=== PATIENT | female | born 1955 | race American Indian/Alaskan Native ===

== ENCOUNTER 2022-01-27 15:04 | Inpatient (IN) | payer MEDICARE ==
[2022-01-27] MEDS ORDERED: MIDAZOLAM 2 MG/2 ML INJ ONE (16:11)
[2022-01-27] MEDS ORDERED: levETIRAcetam 1000 MG/NS 0.75% 1,000 MG/100 ML BAG IV ONE ×2 (16:13→16:15)
[2022-01-27] MEDS ORDERED: MIDAZOLAM 2 MG/2 ML INJ IV STA (16:14)
--- NOTE | 2022-01-27 16:30 | Emergency Department Report ---
ED General Adult HPI - General Chief complaint: Seizure Stated complaint: SEIZURE Time Seen by Provider: 01/27/22 16:07 Source: patient, EMS (Verbal report received from emergency medical services. EMS documentation not available at time of chart dictation ), RN notes reviewed, old records reviewed Mode of arrival: Stretcher Limitations: Physical Limitation - History of Present Illness Initial comments: The patient was evaluated in the emergency department for symptoms described in the history of present illness. He/she was evaluated in the context of the global COVID-19 pandemic, which necessitated consideration that the patient might be at risk for infection with the virus that causes COVID-19. Institutional protocols and algorithms that pertain to the evaluation of patients at risk for COVID-19 are in a state of rapid change based on inf ormation released by regulatory bodies including the CDC and federal and state organizations. These policies and algorithms were followed during the patient's care in the emergency department. Please note that these policies, procedures and recommendations changed on a rapid basis. Primary care doctor: Dr. Maldonado Past medical history stroke, with residual left-sided hemiparesis, hypothyroidism, hypertension, renal insufficiency, congestive heart failure. Current home medications include aspirin, isosorbide dinitrate hydralazine, carvedilol, folic acid, lidocaine, losartan, MiraLAX, multivitamin, Robitussin, rosuvastatin, sennosides, Synthroid, tramadol, Tylenol, Zoloft, vitamin D3 This patient is a pleasant and cooperative 66-year-old female, who presents to the ER today, with an EMS articulated complaint of possible seizure. Patient does not recall having had a seizure. Patient apparently does not have a known history of seizure. EMS reports that they do not know how long the convulsive event or seizure lasted for. The patient is not accompanied by friends, family or personal from group home for collateral information. However, at this point time, the patient denies all acute complaints and indicates that she feels like she is at her baseline. As per verbal report from EMS, normal Accu-Chek in the field, and unremarkable vital signs. Patient herself denies all complaints at this time. She states that she feels fine. While in the emergency room, the patient had a generalized tonic-clonic seizure, which was terminated with 2 mg of Versed. She is now currently postictal, and breathing spontaneously. -: Sudden Severity scale (0 -10): 0 Consistency: now resolved Improves with: medication Worsens with: none - Related Data Allergies Allergy/AdvReac Type Severity Reaction Status Date / Time amoxicillin [From Augmentin] Allergy Unknown Verified 01/27/22 15:47 azithromycin Allergy Unknown Verified 01/27/22 15:47 clavulanic acid Allergy Unknown Verified 01/27/22 15:47 [From Augmentin] latex Allergy Unknown Verified 01/27/22 15:47 Penicillins Allergy Unknown Verified 01/27/22 15:47 shellfish derived Allergy Unknown Verified 01/27/22 15:47 ED Review of Systems ROS: Stated complaint: SEIZURE Other details as noted in HPI Constitutional: denies: fever Eyes: denies: eye discharge Respiratory: denies: cough Cardiovascular: denies: chest pain Gastrointestinal: denies: abdominal pain Genitourinary: denies: dysuria Musculoskeletal: denies: back pain Neurological: weakness (Chronic left-sided hemiparesis) ED Past Medical Hx - Past Medical History Hx Hypertension: Yes Hx CVA: Yes (L sided weakness) Hx Congestive Heart Failure: Yes Hx Renal Disease: Yes (CKD stage 3) Hx Psychiatric Treatment: Yes (depression) ED Physical Exam - General Limitations: Physical Limitation General appearance: alert, in no apparent distress - Head Head exam: Present: atraumatic, normocephalic - Eye Eye exam: Present: normal appearance, EOMI. Absent: conjunctival injection, nystagmus - ENT ENT exam: Present: normal exam, normal orophraynx, mucous membranes moist, normal external ear exam - Neck Neck exam: Present: normal inspection, full ROM. Absent: tenderness, meningismus - Respiratory Respiratory exam: Present: decreased breath sounds. Absent: respiratory distress, wheezes, rales, rhonchi, stridor - Cardiovascular Cardiovascular Exam: Present: regular rate, normal rhythm, normal heart sounds. Absent: bradycardia, tachycardia, irregular rhythm, systolic murmur, diastolic murmur, rubs, gallop - GI/Abdominal GI/Abdominal exam: Present: soft, normal bowel sounds, hernia (Reducible nontender umbilical hernia). Absent: distended, tenderness, guarding, rebound, rigid - Extremities Exam Extremities exam: Present: normal inspection, full ROM (Right arm and right leg), pedal edema (2+ edema in the bilateral lower extremities), other (2+ pulses noted in the bilateral upper and lower extremities. There is no palpable cord. negative Homans sign. Muscular compartments are soft. The pelvis is stable.). Absent: calf tenderness - Back Exam Back exam: Present: normal inspection. Absent: tenderness, CVA tenderness (R), CVA tenderness (L), paraspinal tenderness, vertebral tenderness - Neurological Exam Neurological exam: Present: alert, motor sensory deficit (There is left-sided hemiparesis), other (There is no facial droop. The tongue is midline. EOMI. 5 out of 5 strength right arm and right leg) - Psychiatric Psychiatric exam: Present: normal affect, normal mood - Skin Skin exam: Present: warm, dry, intact, normal color. Absent: rash ED Course Vital Signs 01/27/22 01/27/22 01/27/22 15:36 16:17 16:31 Temperature 99.3 F Pulse Rate 99 H 99 H 107 H Respiratory 18 29 H 40 H Rate Blood Pressure 211/118 Blood Pressure 182/86 [Left] O2 Sat by Pulse 99 98 96 Oximetry 01/27/22 01/27/22 01/27/22 16:47 17:01 17:15 Temperature Pulse Rate 99 H 97 H 93 H Respiratory 13 31 H 25 H Rate Blood Pressure 211/118 194/96 182/89 Blood Pressure [Left] O2 Sat by Pulse 94 93 93 Oximetry 01/27/22 01/27/22 01/27/22 17:31 17:37 17:45 Temperature Pulse Rate 88 94 H 89 Respiratory 22 26 H Rate Blood Pressure 170/75 194/96 159/84 Blood Pressure [Left] O2 Sat by Pulse 97 97 Oximetry 01/27/22 01/27/22 18:01 18:15 Temperature Pulse Rate 87 94 H Respiratory 24 17 Rate Blood Pressure 172/81 161/74 Blood Pressure [Left] O2 Sat by Pulse 97 96 Oximetry - Reevaluation(s) Reevaluation #1: 01/27/22 16:40 Differential diagnosis, include but not limited to: Seizure, pneumonia, UTI, electrolyte derangement, intracranial mass lesion, hemorrhage Assessment and plan: 66-year-old female, who initially is awake, alert, oriented, sober, pleasant and cooperative, with report of seizure, and known left-sided hemiparesis. Patient had a generalized tonic-clonic seizure while interviewing her, which terminated with 2 mg of midazolam. Obtain stat CT scan of the brain, appropriate laboratory studies, loaded with 2 g of Keppra, and obtain urinalysis. Aspiration precautions, head of bed elevation, n.p.o. status at this time. Reassess after initial data points. Patient had return of normal mental status in the field and upon my initial evaluation, therefore, at this point time, is not in the status epilepticus algorithm 01/27/22 17:14 Patient awake and in no acute distress. Following commands and moving right arm and right leg without difficulty 01/27/22 17:48 Blood pressure improved, systolic 170 mmHg. Laboratory studies reviewed and appreciated. Leukocytosis is likely a stress reaction. Keppra infusing. Awaiting urinalysis. 01/27/22 18:12 Urinalysis pending. X-ray of the chest suggest pneumonia. "Penicillin" allergy reviewed and appreciated. As a third-generation cephalosporin, ceftriaxone is not structurally similar to penicillin, and is statistically unlikely to cause an allergic reaction. Blood cultures and lactic acid will be obtained. Patient to be medicated with ceftriaxone and doxycycline. Patient will be admitted to the medical service for new onset convulsion/seizure, and right lower lobe pneumonia. While urinalysis is pending at this time, ceftriaxone should cover most urinary pathogens. 01/27/22 18:25 Dr. Joshi to admit patient to the medical service ED Medical Decision Making - Lab Data Result diagrams: 01/27/22 16:51 01/27/22 16:51 Vital Signs 01/27/22 15:36 Temperature 99.3 F Pulse Rate 99 H Respiratory 18 Rate Blood Pressure 182/86 [Left] O2 Sat by Pulse 99 Oximetry - EKG Data -: EKG Interpreted by Ri EKG shows normal: sinus rhythm Rate: tachycardia - EKG Data 01/27/22 16:40 There is no prior EKG available for comparison. Sinus tachycardia, with a rate of 112 bpm. Normal axis, normal P wave axis, QTC 511 ms, left ventricular hypertrophy. Abnormal EKG. Not a STEMI. - Radiology Data Radiology results: pending, report reviewed, image reviewed CT head/brain wo con INDICATION / CLINICAL INFORMATION: 66 years Female; Seiz ure. TECHNIQUE: Routine CT head without contrast. All CT scans at this location are performed using CT dose reduction for ALARA by means of automated exposure control. COMPARISON: None. FINDINGS: BRAIN / INTRACRANIAL CONTENTS: There is extensive encephalomalacia involving right cerebral hemisphere most consistent with large old right MCA infarct. There is mild left to cerebral white matter disease most consistent with microvascular angiopathy. There is associated ex vacuo dilatation of the right lateral ventricle. Ventricular system is otherwise unremarkable. There is no clear CT evidence of acute intracranial hemorrhage. Is wallerian degeneration involving the right cerebral pinnacle. ORBITS: No significant abnormality of visualized orbits. SINUSES / MASTOIDS: No significant abnormality in the visualized paranasal sinuses or mastoid air cells. CRANIOCERVICAL JUNCTION: No significant abnormality. ADDITIONAL FINDINGS: None. IMPRESSION: 1. There is an old large right MCA infarct with extensive encephalomalacia. 2. There is no CT evidence of acute intracranial hemorrhage. Signer Name: Curtis Jimenez MD Signed: 01/27/2022 3:54 PM CHEST 1 VIEW 01/27/2022 4:40 PM INDICATION / CLINICAL INFORMATION: Seizure and hypertension. COMPARISON: None available. FINDINGS: SUPPORT DEVICES: None. HEART / MEDIASTINUM: No significant abnormality. LUNGS / PLEURA: Hazy opacities in the right lung base. No pneumothorax. ADDITIONAL FINDINGS: Chronic appearing fracture of the left humeral neck. IMPRESSION: 1. Hazy opacities in the medial right lung base are concerning for pneumonia. Signer Name: Stefano Medrano MD Signed: 01/27/2022 4:59 PM Workstation Name: [id number] Critical Care Time: Yes Critical care time in (mins) excluding proc time.: 35 Critical care attestation.: If time is entered above; I have spent that time in minutes in the direct care of this critically ill patient, excluding procedure time. ED Disposition Clinical Impression: Seizure, Left hemiparesis, Encephalomalacia on imaging study, Elevated blood pressure reading, Pulmonary infiltrate Disposition: ADMITTED INPATIENT Is pt being admited?: Yes Does the pt Need Aspirin: No Condition: Good Referrals: ANDRES LUEVANO [Primary Care Provider] - 3-5 Days
--- NOTE | 2022-01-27 16:58 | Cat Scan Report ---
CT head/brain wo con INDICATION / CLINICAL INFORMATION: 66 years Female; Seizure. TECHNIQUE: Routine CT head without contrast. All CT scans at this location are performed using CT dos e reduction for ALARA by means of automated exposure control. COMPARISON: None. FINDINGS: BRAIN / INTRACRANIAL CONTENTS: There is extensive encephalomalacia involving right cerebral hemispher e most consistent with large old right MCA infarct. There is mild left to cerebral white matter disea se most consistent with microvascular angiopathy. There is associated ex vacuo dilatation of the righ t lateral ventricle. Ventricular system is otherwise unremarkable. There is no clear CT evidence of a cute intracranial hemorrhage. Is wallerian degeneration involving the right cerebral pinnacle. ORBITS: No significant abnormality of visualized orbits. SINUSES / MASTOIDS: No significant abnormality in the visualized paranasal sinuses or mastoid air sarah ls. CRANIOCERVICAL JUNCTION: No significant abnormality. ADDITIONAL FINDINGS: None. IMPRESSION: 1. There is an old large right MCA infarct with extensive encephalomalacia. 2. There is no CT evidence of acute intracranial hemorrhage. Signer Name: Curtis Jimenez MD Signed: 01/27/2022 4:54 PM Workstation Name: [id number]
[2022-01-27] MEDS ORDERED: hydrALAZINE 20 MG/1 ML INJ IV ONE (17:07)
[2022-01-27 17:34] LABS: Basophils % (Auto) 0.2 % (0.0-1.8); Hematocrit 37.5 % (30.3-42.9); Hemoglobin 11.9 gm/dl (10.1-14.3); Lymphocytes # (Auto) 1.8 K/mm3 (1.2-5.4); Lymphocytes % (Auto) 10.2 % (13.4-35.0); Mean Corpuscular HGB Conc 32 % (30-34); Mean Corpuscular Volume 81 fl (79-97); Monocytes # (Auto) 0.9 K/mm3 (0.0-0.8); Monocytes % (Auto) 5.2 % (0.0-7.3); Platelet Count 311 K/mm3 (140-440); Red Blood Count 4.62 M/mm3 (3.65-5.03); Red Cell Distribution Width 16.7 % (13.2-15.2)
[2022-01-27 17:37] LABS: Albumin 4.3 g/dL (3.9-5); Calcium 10.4 mg/dL (8.4-10.2)
[2022-01-27 17:53] LABS: INR 1.19 (0.87-1.13)
[2022-01-27 17:54] LABS: Partial Thromboplastin Time 29.2 Sec. (24.2-36.6)
--- NOTE | 2022-01-27 18:03 | XRay Report ---
CHEST 1 VIEW 01/27/2022 4:40 PM INDICATION / CLINICAL INFORMATION: Seizure and hypertension. COMPARISON: None available. FINDINGS: SUPPORT DEVICES: None. HEART / MEDIASTINUM: No significant abnormality. LUNGS / PLEURA: Hazy opacities in the right lung base. No pneumothorax. ADDITIONAL FINDINGS: Chronic appearing fracture of the left humeral neck. IMPRESSION: 1. Hazy opacities in the medial right lung base are concerning for pneumonia. Signer Name: Stefano Medrano MD Signed: 01/27/2022 5:59 PM Workstation Name: [id number]
[2022-01-27] MEDS ORDERED: cefTRIAXone/NS 1 GM/50 ML 1 GM/50 ML BAG IV ONE (18:11)
--- NOTE | 2022-01-27 18:26 | History and Physical Report ---
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 Patient has diminished cognition and provides minimal history. Patient reports "I feel right now". Additional history provided by EMS staff, ED staff, as well as [facility] staff. As per staff the patient was found to have a fever to 101.3 F and was found to have a witnessed seizure. EMS was notified and upon arrival the patient was found to be in distress and subsequent transported to [facility] for fur ther care and evaluation of the aforementioned symptoms. The patient was seen and evaluated in the emergency department. All lab and imaging studies reviewed. Chest x-ray revealed pneumonia, urinalysis also revealed urinary tract infection complicated by sepsis, metabolic acidosis, accelerated hy pertension and new onset seizure. Patient admitted to medical floor due to increased risk of worsening symptoms and initiated on pneumonia protocol. No reports of chills, chest pain, palpitation, adductive cough, skin rash, recent contact, or known exposure to COVID-19. No prior admission for review. All medication listed at time of admission has been reconciled. Advanced care planning conducted in ED. Past History Past Medical History: heart failure, hypertension, hypothyroidism, stroke, other (See HPI) Past Surgical History: No surgical history, Other (Reviewed) Social history: . denies: smoking, alcohol abuse, prescription drug abuse Family history: diabetes, hypertension Medications and Allergies Allergies Allergy/AdvReac Type Severity Reaction Status Date / Time amoxicillin [From Augmentin] Allergy Unknown Verified 01/27/22 15:47 azithromycin Allergy Unknown Verified 01/27/22 15:47 clavulanic acid Allergy Unknown Verified 01/27/22 15:47 [From Augmentin] latex Allergy Unknown Verified 01/27/22 15:47 Penicillins Allergy Unknown Verified 01/27/22 15:47 shellfish derived Allergy Unknown Verified 01/27/22 15:47 Active Meds: Active Medications Doxycycline Hyclate 100 mg/ (Sodium Chloride) 250 mls @ 250 mls/hr IV ONCE ONE; Protocol Stop: 01/27/22 20:29 Ceftriaxone Sodium (Rocephin/Ns 1 Gm/50 Ml) 1 gm in 50 mls @ 100 mls/hr IV ONCE ONE; Protocol Stop: 01/27/22 18:40 Review of Systems ROS unobtainable: due to mental status Exam - Constitutional Vitals: Temp Pulse Resp BP Pulse Ox 99.3 F 94 H 17 161/74 96 01/27/22 15:36 01/27/22 18:15 01/27/22 18:15 01/27/22 18:15 01/27/22 18:15 General appearance: Present: mild distress - EENT Eyes: Present: PERRL ENT: clear oral mucosa, hearing decreased - Neck Neck: Present: supple, normal ROM - Respiratory Respiratory effort: normal Respiratory: bilateral: diminished, rhonchi - Cardiovascular Heart Sounds: Present: S1 & S2. Absent: rub, click - Extremities Extremities: pulses symmetrical, No edema Peripheral Pulses: within normal limits - Abdominal General gastrointestinal: Present: soft, non-tender, non-distended, normal bowel sounds Female genitourinary: Present: normal - Integumentary Integumentary: Present: clear, warm, dry - Musculoskeletal Musculoskeletal: generalized weakness - Psychiatric Psychiatric: no memory intact, cooperative - Neurologic Neurologic: CNII-XII intact, moves all extremities Results - Labs CBC & Chem 7: 01/27/22 16:51 01/27/22 16:51 Labs: Abnormal lab results 01/27/22 01/27/22 01/27/22 Range/Units 16:51 16:51 16:51 WBC 17.5 H (4.5-11.0) K/mm3 MCH 26 L (28-32) pg RDW 16.7 H (13.2-15.2) % Lymph % (Auto) 10.2 L (13.4-35.0) % Orange # (Auto) 0.9 H (0.0-0.8) K/mm3 Seg Neutrophils % 84.4 H (40.0-70.0) % Seg Neutrophils # 14.7 H (1.8-7.7) K/mm3 PT (12.2-14.9) Sec. INR (0.87-1.13) Carbon Dioxide 20 L (22-30) mmol/L Glucose 134 H (65-100) mg/dL Calcium 10.4 H (8.4-10.2) mg/dL Total Creatine Kinase 380 H (30-135) units/L Salicylates < 0.3 L (2.8-20.0) mg/dL Acetaminophen (10.0-30.0) ug/mL 01/27/22 01/27/22 Range/Units 16:51 16:51 WBC (4.5-11.0) K/mm3 MCH (28-32) pg RDW (13.2-15.2) % Lymph % (Auto) (13.4-35.0) % Orange # (Auto) (0.0-0.8) K/mm3 Seg Neutrophils % (40.0-70.0) % Seg Neutrophils # (1.8-7.7) K/mm3 PT 16.5 H (12.2-14.9) Sec. INR 1.19 H (0.87-1.13) Carbon Dioxide (22-30) mmol/L Glucose (65-100) mg/dL Calcium (8.4-10.2) mg/dL Total Creatine Kinase (30-135) units/L Salicylates (2.8-20.0) mg/dL Acetaminophen 5.0 L (10.0-30.0) ug/mL Assessment and Plan - Patient Problems (1) Pneumonia Current Visit: Yes Status: Acute Plan to address problem: Morning protocol: Chest x-ray, CBC, IV antibiotic therapy, supplemental oxygen, pulse oximetry, continue medical management. (2) Seizure Current Visit: Yes Status: Acute Plan to address problem: Seizure precautions. Patient loaded with Keppra in the emergency department. Neuro check, seizure precaution. Suspect seizure may be due to to sepsis. (3) Sepsis Current Visit: Yes Status: Acute Plan to address problem: Sepsis protocol: Chest x-ray, CBC, urinalysis, IV antibiotic therapy, IV fluid resuscitation therapy, maintain mean arterial pressure greater than equal to 65, serial lactic acid level. (4) Metabolic acidosis Current Visit: Yes Status: Acute Plan to address problem: IV fluid resuscitation therapy, BMP, serial lactic acid level. (5) Accelerated hypertension Current Visit: Yes Status: Acute Plan to address problem: Monitor blood pressure every shift, continue medical management. (6) Vascular dementia Current Visit: Yes Status: Acute Qualifiers: Dementia behavioral disturbance: without behavioral disturbance Qualified Code(s): F01.50 - Vascular dementia without behavioral disturbance Plan to address problem: Verbal prompting, verbal redirection, benzodiazepine therapy as clinically indicated. (7) Cerebral atherosclerosis Current Visit: Yes Status: Acute Plan to address problem: Risk factor reduction, antiplatelet therapy as clinically indicated, supportive care. (8) DVT prophylaxis Current Visit: Yes Status: Acute Plan to address problem: SCD to bilateral lower extremities while in bed (9) Advance care planning Current Visit: Yes Status: Acute Plan to address problem: Disease education conducted, care plan discussed, diagnoses discussed, prognosis discussed, patient is full code, +30 minutes. (10) Preventative health care Current Visit: Yes Status: Acute Plan to address problem: Risk factor reduction discussed. Patient to follow-up with primary care physician for all age and risk factor appropriate screening test. +30 minutes.
[2022-01-27] MEDS ORDERED: oxyCODONE /ACETAMINOPHEN 5-325MG TAB PO PRN (18:28)
[2022-01-27] MEDS ORDERED: ONDANSETRON 4 MG/2 ML INJ IV PRN (18:28)
[2022-01-27] MEDS ORDERED: ACETAMINOPHEN 325 MG TAB PO PRN (18:28)
[2022-01-27] MEDS ORDERED: HYDROmorphone 0.5 MG/0.5 ML INJ IV PRN (18:28)
[2022-01-27] MEDS ORDERED: ALBUTEROL 2.5 MG/3 ML NEBU IH PRN (18:28)
[2022-01-27] MEDS ORDERED: SODIUM CHLORIDE 0.9% 1000 ML 1,000 ML IV SCH (18:45)
[2022-01-27 19:28] LABS: Color,Urine Yellow (Yellow)
[2022-01-27] MEDS ORDERED: DOXYCYCLINE HYCLATE 100 MG in SODIUM CHLORIDE 0.9% 250ML 250 ML IV ONE (19:30)
[2022-01-27 19:34] LABS: Bacteria,Urine 4+ /HPF (Negative); Mucus,Urine FEW /HPF
[2022-01-27] MEDS: levoFLOXacin 750 MG TAB PO SCH (20:33)
--- NOTE | 2022-01-28 08:17 | Progress Note ---
Assessment and Plan Assessment and plan: #Sepsis #Pneumonia #Asymptomatic bacteriuria -Chest x-ray with R lobe infiltrate -continue levaquin -UA shows bacteruria. Patient denies urinary complaints, no need to treat #Seizure vs myoclonic syncope -patient loaded with Keppra in the ED -EEG and Neurology consult ordered -will contine neurochecks -may be due to infection #Metabolic acidosis-resolved -IV fluid resuscitation therapy #Hypertension -continue coreg at home dose #Vascular dementia #Cerebral atherosclerosis -continue ASA + statin #Advanced care planning -Disease education conducted, care plan discussed, diagnoses discussed, prognosis discussed, patient is full code, +30 minutes. History Interval history: No acute events overnight. Patient is alert and oriented x4. She denies history of seizure. She last recalls being at the [facility] with no symptoms prior to the event. She currently has no issues at this time. Hospitalist Physical - Physical exam Narrative exam: GENERAL: Well-developed well-nourished. In no acute distress. HEENT: Normocephalic. Atraumatic. NECK: Supple. CHEST/LUNGS: CTAB on room air HEART/CARDIOVASCULAR: RRR. No murmur, rubs or gallops appreciated. ABDOMEN: +BS. NT/ND. SKIN: No rashes noted. NEURO: No focal motor deficit. Follows all commands. MUSCULOSKELETAL: No joint effusion EXTREMITIES: No cyanosis, clubbing or edema. PSYCH: Cooperative. - Constitutional Vitals: Temp Pulse Resp BP Pulse Ox 99.2 F 81 18 152/69 98 01/27/22 22:48 01/27/22 22:48 01/28/22 00:12 01/27/22 22:48 01/28/22 08:07 General appearance: Present: mild distress Results - Labs CBC & Chem 7: 01/28/22 07:35 01/28/22 07:35 Labs: Laboratory Last Values WBC 17.5 K/mm3 (4.5-11.0) H 01/27/22 16:51 RBC 4.62 M/mm3 (3.65-5.03) 01/27/22 16:51 Hgb 11.9 gm/dl (10.1-14.3) 01/27/22 16:51 Hct 37.5 % (30.3-42.9) 01/27/22 16:51 MCV 81 fl (79-97) 01/27/22 16:51 MCH 26 pg (28-32) L 01/27/22 16:51 MCHC 32 % (30-34) 01/27/22 16:51 RDW 16.7 % (13.2-15.2) H 01/27/22 16:51 Plt Count 311 K/mm3 (140-440) 01/27/22 16:51 Lymph % (Auto) 10.2 % (13.4-35.0) L 01/27/22 16:51 Clinch % (Auto) 5.2 % (0.0-7.3) 01/27/22 16:51 Eos % (Auto) 0.0 % (0.0-4.3) 01/27/22 16:51 Baso % (Auto) 0.2 % (0.0-1.8) 01/27/22 16:51 Lymph # (Auto) 1.8 K/mm3 (1.2-5.4) 01/27/22 16:51 Clinch # (Auto) 0.9 K/mm3 (0.0-0.8) H 01/27/22 16:51 Eos # (Auto) 0.0 K/mm3 (0.0-0.4) 01/27/22 16:51 Baso # (Auto) 0.0 K/mm3 (0.0-0.1) 01/27/22 16:51 Seg Neutrophils % 84.4 % (40.0-70.0) H 01/27/22 16:51 Seg Neutrophils # 14.7 K/mm3 (1.8-7.7) H 01/27/22 16:51 PT 16.5 Sec. (12.2-14.9) H 01/27/22 16:51 INR 1.19 (0.87-1.13) H 01/27/22 16:51 APTT 29.2 Sec. (24.2-36.6) 01/27/22 16:51 Sodium 138 mmol/L (137-145) 01/27/22 16:51 Potassium 3.8 mmol/L (3.6-5.0) 01/27/22 16:51 Chloride 100.7 mmol/L (98-107) 01/27/22 16:51 Carbon Dioxide 20 mmol/L (22-30) L 01/27/22 16:51 Anion Gap 21 mmol/L 01/27/22 16:51 BUN 16 mg/dL (7-17) 01/27/22 16:51 Creatinine 1.2 mg/dL (0.6-1.2) 01/27/22 16:51 Estimated GFR 55 ml/min 01/27/22 16:51 BUN/Creatinine Ratio 13 % 01/27/22 16:51 Glucose 134 mg/dL (65-100) H 01/27/22 16:51 Lactic Acid 1.90 mmol/L (0.7-2.0) 01/27/22 18:52 Calcium 10.4 mg/dL (8.4-10.2) H 01/27/22 16:51 Magnesium 1.70 mg/dL (1.7-2.3) 01/27/22 16:51 Total Bilirubin 0.50 mg/dL (0.1-1.2) 01/27/22 16:51 AST 35 units/L (5-40) 01/27/22 16:51 ALT 38 units/L (7-56) 01/27/22 16:51 Alkaline Phosphatase 95 units/L (35-129) 01/27/22 16:51 Total Creatine Kinase 380 units/L (30-135) H 01/27/22 16:51 Total Protein 7.4 g/dL (6.3-8.2) 01/27/22 16:51 Albumin 4.3 g/dL (3.9-5) 01/27/22 16:51 Albumin/Globulin Ratio 1.4 % 01/27/22 16:51 TSH 3.520 mlU/mL (0.270-4.200) 01/27/22 16:51 Free T4 1.08 ng/dL (0.76-1.46) 01/27/22 16:51 Urine Color Yellow (Yellow) 01/27/22 Unknown Urine Turbidity Slightly-cloudy (Clear) 01/27/22 Unknown Specific [place] (Man) 1.015 (1.003-1.030) 01/27/22 Unknown Ur Protein (Man) 1+ mg/dL (Negative) 01/27/22 Unknown Ur Ketones (Man) Negative (Negative) 01/27/22 Unknown Ur Nitrite (Man) Positive (Negative) 01/27/22 Unknown Urine Bilirubin (Man) Negative (Negative) 01/27/22 Unknown Urine Ictotest Not Reportable 01/27/22 Unknown Leukocyte Esterase (Man) Large (Negative) 01/27/22 Unknown Urine WBC (Auto) 143.0 /HPF (0.0-6.0) H 01/27/22 Unknown Urine RBC (Auto) 13.0 /HPF (0.0-6.0) 01/27/22 Unknown U Epithel Cells (Auto) 1.0 /HPF (0-13.0) 01/27/22 Unknown Urine Bacteria (Auto) 4+ /HPF (Negative) 01/27/22 Unknown Urine RBC (Manual) 1+ (Negative) 01/27/22 Unknown Urine Mucus Few /HPF 01/27/22 Unknown Salicylates < 0.3 mg/dL (2.8-20.0) L 01/27/22 16:51 Acetaminophen 5.0 ug/mL (10.0-30.0) L 01/27/22 16:51 Plasma/Serum Alcohol < 0.01 % (0-0.07) 01/27/22 16:51 Microbiology: Microbiology 01/27/22 18:52 Peripheral/Venous Blood Culture - Preliminary Culture in Progress 01/27/22 18:52 Peripheral/Venous Blood Culture - Preliminary Culture in Progress Valentine/IV: Voiding Method External Female Catheter Active Medications - Current Medications Current Medications: Generic Name Dose Route Start Last Admin Trade Name Freq PRN Reason Stop Dose Admin Acetaminophen 650 mg 01/27/22 18:28 Acetaminophen 325 Mg Tab PO Q4H PRN Pain MILD(1-3)/Fever >100.5/ZAMORA Albuterol 2.5 mg 01/27/22 18:28 Albuterol 2.5 Mg/3 Ml Nebu IH Q4HRT PRN Shortness Of Breath Hydromorphone HCl 0.5 mg 01/27/22 18:28 Hydromorphone 0.5 Mg/0.5 Ml Inj IV Q13H PRN Pain , Severe (7-10) Sodium Chloride 1,000 mls @ 42 mls/hr 01/27/22 18:45 Nacl 0.9% 1000 Ml IV DIRECT JOSE D Levofloxacin 750 mg 01/27/22 20:00 01/27/22 20:33 Levofloxacin 750 Mg Tab PO 750 mg Q24H JOSE D Administration Protocol Ondansetron HCl 4 mg 01/27/22 18:28 Ondansetron 4 Mg/2 Ml Inj IV Q8H PRN Nausea And Vomiting Oxycodone/Acetaminophen 1 tab 01/27/22 18:28 Oxycodone /Acetaminophen 5-325mg Tab PO Q6H PRN Pain, Moderate (4-6) Sodium Chloride 10 ml 01/27/22 22:00 01/27/22 22:11 Sodium Chloride 0.9% 10 Ml Flush Syringe IV 10 ml BID JOSE D Administration Sodium Chloride 10 ml 01/27/22 18:28 Sodium Chloride 0.9% 10 Ml Flush Syringe IV PRN PRN LINE FLUSH
[2022-01-28 09:19] LABS: Hemoglobin 10.7 gm/dl (10.1-14.3); Mean Corpuscular HGB Conc 31 % (30-34); Mean Corpuscular Volume 81 fl (79-97); Platelet Count 266 K/mm3 (140-440); Red Blood Count 4.19 M/mm3 (3.65-5.03); Red Cell Distribution Width 16.5 % (13.2-15.2)
[2022-01-28] MEDS: ASPIRIN 81 MG TAB CHEW PO SCH (09:37)
[2022-01-28] MEDS: carvediloL 12.5 MG TAB PO SCH ×2 (09:37→21:31)
[2022-01-28 09:39] LABS: BUN/Creatinine Ratio 13; Blood Urea Nitrogen 14 mg/dL (7-17); Calcium 9.3 mg/dL (8.4-10.2); Hemolysis Index 5
[2022-01-28 11:32] LABS: Basophils % (Manual) 0 % (0.0-1.8); Hypochromasia 1+; Myelocytes # (Manual) 0.4 K/mm3; Platelet Estimate Consistent w Auto; Total Cells Counted 100
--- NOTE | 2022-01-28 16:58 | Electrocardiograph Report ---
[facility] Test Date: 2022-01-27 Test Time: 16:20:13 Pat Name: KENYA BARRIOS Department: Room: A373 1 Gender: F Machine [employer]il [employer]er: GUANACO : 1955 Requested By: KIRK GUTIERREZ Order Number: [id number] Reading MD: Stacey Chowdary Measurements Intervals [place] Rate: 112 P: 75 OK: 161 QRS: -1 QRSD: 105 T: 31 QT: 373 QTc: 511 Interpretive Statements Sinus tachycardia Probable left atrial enlargement Left ventricular hypertrophy Nonspecific ST segment changes No previous ECG available for comparison Electronically Signed On 01-28-2022 16:57:39 EDT by Stacey Chowdary
[2022-01-28] MEDS: levoFLOXacin 750 MG TAB PO SCH (21:31)
[2022-01-28] MEDS: SERTRALINE 100 MG TAB PO SCH (21:31)
[2022-01-29 08:41] LABS: Basophils % (Auto) 0.3 % (0.0-1.8); Eosinophils # (Auto) 0.2 K/mm3 (0.0-0.4); Eosinophils % (Auto) 2.2 % (0.0-4.3); Hematocrit 33.1 % (30.3-42.9); Hemoglobin 10.5 gm/dl (10.1-14.3); Mean Corpuscular HGB Conc 32 % (30-34); Mean Corpuscular Volume 81 fl (79-97); Monocytes # (Auto) 0.7 K/mm3 (0.0-0.8); Monocytes % (Auto) 7.9 % (0.0-7.3); Platelet Count 256 K/mm3 (140-440); Red Blood Count 4.07 M/mm3 (3.65-5.03); Red Cell Distribution Width 16.4 % (13.2-15.2)
[2022-01-29] MEDS: carvediloL 12.5 MG TAB PO SCH ×2 (08:59→21:43)
[2022-01-29] MEDS: ASPIRIN 81 MG TAB CHEW PO SCH (08:59)
[2022-01-29 09:05] LABS: BUN/Creatinine Ratio 17; Blood Urea Nitrogen 17 mg/dL (7-17); Calcium 9.3 mg/dL (8.4-10.2); Hemolysis Index 3
--- NOTE | 2022-01-29 14:49 | Progress Note ---
Assessment and Plan Assessment and plan: #Sepsisresolved #Community-acquired pneumonia secondary to possible gram-negative rods/atypical infection #Asymptomatic bacteriuria -Chest x-ray with R lobe infiltrate -continue levaquin 750 mg daily x5 days (completes on 01/31/2022) -Urinalysis revealing positive nitrites, large leukocyte esterase, WBC 143, 4+ bacteria. Unremarkable urinalysis is also being treated with Levaquin. #Seizure vs myoclonic syncope -patient loaded with Keppra in the ED -Neurology consulted; pending recs. EEG ordered. -will continue neurochecks -may be due to infection #Metabolic acidosis-resolved -IV fluid resuscitation therapy #Hypertension -continue coreg 12.5 mg twice daily at home dose #Vascular dementia #Cerebral atherosclerosis -continue ASA 81 mg daily + statin 40 mg daily #Advanced care planning -Disease education conducted, care plan discussed, diagnoses discussed, progn osis discussed, patient is full code, +30 minutes. #Discharge planning - Patient is pending evaluation by neurology. - Case management has been made aware. - Discharge is tentatively 01/30/2022. Disposition Plan: Continue medical management Total Time Spent with Patient (Minutes): 45 minutes History Interval history: No acute events overnight. Hospitalist Physical - Constitutional Vitals: Temp Pulse Resp BP Pulse Ox 98.0 F 64 18 151/77 95 01/29/22 11:01 01/29/22 11:01 01/29/22 11:01 01/29/22 11:01 01/29/22 11:01 General appearance: Present: no acute distress, well-nourished - EENT Eyes: Present: PERRL, EOM intact ENT: hearing intact, clear oral mucosa, dentition normal - Neck Neck: Present: supple, normal ROM - Respiratory Respiratory effort: normal Respiratory: bilateral: CTA - Cardiovascular Rhythm: regular Heart Sounds: Present: S1 & S2 - Extremities Extremities: no ischemia, pulses intact, pulses symmetrical, No edema, normal temperature, normal color Peripheral Pulses: within normal limits - Abdominal General gastrointestinal: soft, non-tender, non-distended, normal bowel sounds - Integumentary Integumentary: Present: clear, warm, dry - Psychiatric Psychiatric: appropriate mood/affect, intact judgment & insight, memory intact, cooperative - Neurologic Neurologic: CNII-XII intact, other (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) - Allied Health Allied health notes reviewed: nursing Results - Labs CBC & Chem 7: 01/29/22 08:30 01/29/22 08:30 Labs: Laboratory Last Values WBC 9.4 K/mm3 (4.5-11.0) 01/29/22 08:30 RBC 4.07 M/mm3 (3.65-5.03) 01/29/22 08:30 Hgb 10.5 gm/dl (10.1-14.3) 01/29/22 08:30 Hct 33.1 % (30.3-42.9) 01/29/22 08:30 MCV 81 fl (79-97) 01/29/22 08:30 MCH 26 pg (28-32) L 01/29/22 08:30 MCHC 32 % (30-34) 01/29/22 08:30 RDW 16.4 % (13.2-15.2) H 01/29/22 08:30 Plt Count 256 K/mm3 (140-440) 01/29/22 08:30 Lymph % (Auto) 21.0 % (13.4-35.0) 01/29/22 08:30 Hand % (Auto) 7.9 % (0.0-7.3) H 01/29/22 08:30 Eos % (Auto) 2.2 % (0.0-4.3) 01/29/22 08:30 Baso % (Auto) 0.3 % (0.0-1.8) 01/29/22 08:30 Lymph # (Auto) 2.0 K/mm3 (1.2-5.4) 01/29/22 08:30 Hand # (Auto) 0.7 K/mm3 (0.0-0.8) 01/29/22 08:30 Eos # (Auto) 0.2 K/mm3 (0.0-0.4) 01/29/22 08:30 Baso # (Auto) 0.0 K/mm3 (0.0-0.1) 01/29/22 08:30 Add Manual Diff Complete 01/28/22 07:35 Total Counted 100 01/28/22 07:35 Seg Neutrophils % 68.6 % (40.0-70.0) 01/29/22 08:30 Seg Neuts % (Manual) 71.0 % (40.0-70.0) H 01/28/22 07:35 Band Neutrophils % 0 % 01/28/22 07:35 Lymphocytes % (Manual) 11.0 % (13.4-35.0) L 01/28/22 07:35 Reactive Lymphs % (Man) 0 % 01/28/22 07:35 Monocytes % (Manual) 11.0 % (0.0-7.3) H 01/28/22 07:35 Eosinophils % (Manual) 2.0 % (0.0-4.3) 01/28/22 07:35 Basophils % (Manual) 0 % (0.0-1.8) 01/28/22 07:35 Metamyelocytes % 2.0 % 01/28/22 07:35 Myelocytes % 3.0 % 01/28/22 07:35 Promyelocytes % 0 % 01/28/22 07:35 Blast Cells % 0 % 01/28/22 07:35 Nucleated RBC % Not Reportable 01/28/22 07:35 Seg Neutrophils # 6.5 K/mm3 (1.8-7.7) 01/29/22 08:30 Seg Neutrophils # Man 9.3 K/mm3 (1.8-7.7) H 01/28/22 07:35 Band Neutrophils # 0.0 K/mm3 01/28/22 07:35 Lymphocytes # (Manual) 1.4 K/mm3 (1.2-5.4) 01/28/22 07:35 Abs React Lymphs (Man) 0.0 K/mm3 01/28/22 07:35 Monocytes # (Manual) 1.4 K/mm3 (0.0-0.8) H 01/28/22 07:35 Eosinophils # (Manual) 0.3 K/mm3 (0.0-0.4) 01/28/22 07:35 Basophils # (Manual) 0.0 K/mm3 (0.0-0.1) 01/28/22 07:35 Metamyelocytes # 0.3 K/mm3 01/28/22 07:35 Myelocytes # 0.4 K/mm3 01/28/22 07:35 Promyelocytes # 0.0 K/mm3 01/28/22 07:35 Blast Cells # 0.0 K/mm3 01/28/22 07:35 WBC Morphology Not Reportable 01/28/22 07:35 Hypersegmented Neuts Not Reportable 01/28/22 07:35 Hyposegmented Neuts Not Reportable 01/28/22 07:35 Hypogranular Neuts Not Reportable 01/28/22 07:35 Smudge Cells Not Reportable 01/28/22 07:35 Toxic Granulation Not Reportable 01/28/22 07:35 Toxic Vacuolation Not Reportable 01/28/22 07:35 Dohle Bodies Not Reportable 01/28/22 07:35 Pelger-Huet Anomaly Not Reportable 01/28/22 07:35 Meenakshi Rods Not Reportable 01/28/22 07:35 Platelet Estimate Consistent w auto 01/28/22 07:35 Clumped Platelets Not Reportable 01/28/22 07:35 Plt Clumps, EDTA Not Reportable 01/28/22 07:35 Large Platelets Not Reportable 01/28/22 07:35 Giant Platelets Not Reportable 01/28/22 07:35 Platelet Satelliting Not Reportable 01/28/22 07:35 Plt Morphology Comment Not Reportable 01/28/22 07:35 RBC Morphology Not Reportable 01/28/22 07:35 Dimorphic RBCs Not Reportable 01/28/22 07:35 Polychromasia Not Reportable 01/28/22 07:35 Hypochromasia 1+ 01/28/22 07:35 Poikilocytosis Not Reportable 01/28/22 07:35 Anisocytosis Not Reportable 01/28/22 07:35 Microcytosis Not Reportable 01/28/22 07:35 Macrocytosis Not Reportable 01/28/22 07:35 Spherocytes Not Reportable 01/28/22 07:35 Pappenheimer Bodies Not Reportable 01/28/22 07:35 Sickle Cells Not Reportable 01/28/22 07:35 Target Cells Not Reportable 01/28/22 07:35 Tear Drop Cells Not Reportable 01/28/22 07:35 Ovalocytes Not Reportable 01/28/22 07:35 Helmet Cells Not Reportable 01/28/22 07:35 Hector-Coldiron Bodies Not Reportable 01/28/22 07:35 [place] Rings Not Reportable 01/28/22 07:35 [place] Cells Not Reportable 01/28/22 07:35 Bite Cells Not Reportable 01/28/22 07:35 Crenated Cell Not Reportable 01/28/22 07:35 Elliptocytes Not Reportable 01/28/22 07:35 Acanthocytes (Spur) Not Reportable 01/28/22 07:35 Rouleaux Not Reportable 01/28/22 07:35 Hemoglobin C Crystals Not Reportable 01/28/22 07:35 Schistocytes Not Reportable 01/28/22 07:35 Malaria parasites Not Reportable 01/28/22 07:35 Randy Bodies Not Reportable 01/28/22 07:35 Hem Pathologist Commnt No 01/28/22 07:35 PT 16.5 Sec. (12.2-14.9) H 01/27/22 16:51 INR 1.19 (0.87-1.13) H 01/27/22 16:51 APTT 29.2 Sec. (24.2-36.6) 01/27/22 16:51 Sodium 142 mmol/L (137-145) 01/29/22 08:30 Potassium 3.7 mmol/L (3.6-5.0) 01/29/22 08:30 Chloride 106.9 mmol/L (98-107) 01/29/22 08:30 Carbon Dioxide 25 mmol/L (22-30) 01/29/22 08:30 Anion Gap 14 mmol/L 01/29/22 08:30 BUN 17 mg/dL (7-17) 01/29/22 08:30 Creatinine 1.0 mg/dL (0.6-1.2) 01/29/22 08:30 Estimated GFR > 60 ml/min 01/29/22 08:30 BUN/Creatinine Ratio 17 % 01/29/22 08:30 Glucose 88 mg/dL (65-100) 01/29/22 08:30 Lactic Acid 1.90 mmol/L (0.7-2.0) 01/27/22 18:52 Calcium 9.3 mg/dL (8.4-10.2) 01/29/22 08:30 Magnesium 1.70 mg/dL (1.7-2.3) 01/27/22 16:51 Total Bilirubin 0.50 mg/dL (0.1-1.2) 01/27/22 16:51 AST 35 units/L (5-40) 01/27/22 16:51 ALT 38 units/L (7-56) 01/27/22 16:51 Alkaline Phosphatase 95 units/L (35-129) 01/27/22 16:51 Total Creatine Kinase 380 units/L (30-135) H 01/27/22 16:51 Total Protein 7.4 g/dL (6.3-8.2) 01/27/22 16:51 Albumin 4.3 g/dL (3.9-5) 01/27/22 16:51 Albumin/Globulin Ratio 1.4 % 01/27/22 16:51 TSH 3.520 mlU/mL (0.270-4.200) 01/27/22 16:51 Free T4 1.08 ng/dL (0.76-1.46) 01/27/22 16:51 Urine Color Yellow (Yellow) 01/27/22 Unknown Urine Turbidity Slightly-cloudy (Clear) 01/27/22 Unknown Specific [place] (Man) 1.015 (1.003-1.030) 01/27/22 Unknown Ur Protein (Man) 1+ mg/dL (Negative) 01/27/22 Unknown Ur Ketones (Man) Negative (Negative) 01/27/22 Unknown Ur Nitrite (Man) Positive (Negative) 01/27/22 Unknown Urine Bilirubin (Man) Negative (Negative) 01/27/22 Unknown Urine Ictotest Not Reportable 01/27/22 Unknown Leukocyte Esterase (Man) Large (Negative) 01/27/22 Unknown Urine WBC (Auto) 143.0 /HPF (0.0-6.0) H 01/27/22 Unknown Urine RBC (Auto) 13.0 /HPF (0.0-6.0) 01/27/22 Unknown U Epithel Cells (Auto) 1.0 /HPF (0-13.0) 01/27/22 Unknown Urine Bacteria (Auto) 4+ /HPF (Negative) 01/27/22 Unknown Urine RBC (Manual) 1+ (Negative) 01/27/22 Unknown Urine Mucus Few /HPF 01/27/22 Unknown Salicylates < 0.3 mg/dL (2.8-20.0) L 01/27/22 16:51 Acetaminophen 5.0 ug/mL (10.0-30.0) L 01/27/22 16:51 Plasma/Serum Alcohol < 0.01 % (0-0.07) 01/27/22 16:51 Microbiology: Microbiology 01/27/22 18:52 Peripheral/Venous Blood Culture - Preliminary NO GROWTH AFTER 24 HOURS 01/27/22 18:52 Peripheral/Venous Blood Culture - Preliminary NO GROWTH AFTER 24 HOURS Valentine/IV: Voiding Method External Female Catheter Active Medications - Current Medications Current Medications: Generic Name Dose Route Start Last Admin Trade Name Freq PRN Reason Stop Dose Admin Acetaminophen 650 mg 01/27/22 18:28 Acetaminophen 325 Mg Tab PO Q4H PRN Pain MILD(1-3)/Fever >100.5/ZAMORA Albuterol 2.5 mg 01/27/22 18:28 Albuterol 2.5 Mg/3 Ml Nebu IH Q4HRT PRN Shortness Of Breath Aspirin 81 mg 01/28/22 10:00 01/29/22 08:59 Aspirin 81 Mg Tab Chew PO 81 mg QDAY JOSE D Administration Atorvastatin Calcium 80 mg 01/28/22 22:00 01/28/22 21:31 Atorvastatin 40 Mg Tab PO 80 mg QHS JOSE D Administration Carvedilol 12.5 mg 01/28/22 10:00 01/29/22 08:59 Carvedilol 12.5 Mg Tab PO 12.5 mg BID JOSE D Administration Hydromorphone HCl 0.5 mg 01/27/22 18:28 Hydromorphone 0.5 Mg/0.5 Ml Inj IV Q13H PRN Pain , Severe (7-10) Levofloxacin 750 mg 01/27/22 20:00 01/28/22 21:31 Levofloxacin 750 Mg Tab PO 750 mg Q24H JOSE D Administration Protocol Ondansetron HCl 4 mg 01/27/22 18:28 Ondansetron 4 Mg/2 Ml Inj IV Q8H PRN Nausea And Vomiting Oxycodone/Acetaminophen 1 tab 01/27/22 18:28 Oxycodone /Acetaminophen 5-325mg Tab PO Q6H PRN Pain, Moderate (4-6) Sertraline HCl 100 mg 01/28/22 22:00 01/28/22 21:31 Sertraline 100 Mg Tab PO 100 mg HS JSOE D Administration Sodium Chloride 10 ml 01/27/22 22:00 01/29/22 09:00 Sodium Chloride 0.9% 10 Ml Flush Syringe IV 10 ml BID JOSE D Administration Sodium Chloride 10 ml 01/27/22 18:28 Sodium Chloride 0.9% 10 Ml Flush Syringe IV PRN PRN LINE FLUSH
--- NOTE | 2022-01-29 14:50 | Consultation ---
History of Present Illness Consult date: 01/29/22 Reason for Consult: Seizure Chief complaint: Altered Mental Status History of present illness: 66 yo female with htn, heart failure, stroke (residual left hemiparesis), hypothyrodism, p/w a seizure in the setting of underlying infection (uti; sepsis). She notes no history of seizures. Currently, she is at her baseline except she feels slightly tired. Past History Past Medical History: heart failure, hypertension, hypothyroidism, stroke, other (See HPI) Past Surgical History: No surgical history, Other (Reviewed) Social history: . denies: smoking, alcohol abuse, prescription drug abuse Family history: diabetes, hypertension Medications and Allergies Allergies Allergy/AdvReac Type Severity Reaction Status Date / Time amoxicillin [From Augmentin] Allergy Unknown Verified 01/27/22 15:47 azithromycin Allergy Unknown Verified 01/27/22 15:47 clavulanic acid Allergy Unknown Verified 01/27/22 15:47 [From Augmentin] latex Allergy Unknown Verified 01/27/22 15:47 Penicillins Allergy Unknown Verified 01/27/22 15:47 shellfish derived Allergy Unknown Verified 01/27/22 15:47 Home Medications Medication Instructions Recorded Confirmed Last Taken Type Acetaminophen [Tylenol] 650 mg PO Q6H 01/28/22 01/28/22 Unknown History Aspirin [Aspirin BABY CHEW TAB] 81 mg PO QDAY 01/28/22 01/28/22 Unknown History Cholecalciferol (Vitamin D3) 5,000 unit PO QWEEK 01/28/22 01/28/22 Unknown Hi story [Vitamin D3] Folic Acid 1 mg PO QDAY 01/28/22 01/28/22 Unknown History Sennosides [Senna] 8.6 mg PO QDAY PRN 01/28/22 01/28/22 Unknown History Sertraline HCl [Zoloft] 100 mg PO HS 01/28/22 01/28/22 Unknown History Tramadol HCl 50 mg PO Q6H PRN 01/28/22 01/28/22 Unknown History polyethylene glycoL 3350 [Miralax 17 gm PO QDAY PRN 01/28/22 01/28/22 Unknown History 3350] AtorvaSTATin [Lipitor] 40 mg PO QHS #30 tablet 01/29/22 Unknown Rx Isosorbide Dinit/Hydralazine 20 - 37.5 mg PO Q8H #90 tab 01/29/22 Unknown Rx [Bidil 20 mg-37.5 mg Tablet] Losartan Potassium 25 mg PO QDAY #30 tab 01/29/22 Unknown Rx carvediloL [Coreg] 12.5 mg PO BID #60 tab 01/29/22 Unknown Rx levoFLOXacin [Levaquin TAB] 750 mg PO Q24H #2 tablet 01/29/22 Unknown Rx Active Meds: Active Medications Acetaminophen (Acetaminophen 325 Mg Tab) 650 mg PO Q4H PRN PRN Reason: Pain MILD(1-3)/Fever >100.5/ZAMORA Albuterol (Albuterol 2.5 Mg/3 Ml Nebu) 2.5 mg IH Q4HRT PRN PRN Reason: Shortness Of Breath Aspirin (Aspirin 81 Mg Tab Chew) 81 mg PO QDAY [facility] Last Admin: 01/29/22 08:59 Dose: 81 mg Atorvastatin Calcium (Atorvastatin 40 Mg Tab) 80 mg PO QHS [facility] Last Admin: 01/28/22 21:31 Dose: 80 mg Carvedilol (Carvedilol 12.5 Mg Tab) 12.5 mg PO BID [facility] Last Admin: 01/29/22 08:59 Dose: 12.5 mg Hydromorphone HCl (Hydromorphone 0.5 Mg/0.5 Ml Inj) 0.5 mg IV Q13H PRN PRN Reason: Pain , Severe (7-10) Levofloxacin (Levofloxacin 750 Mg Tab) 750 mg PO Q24H [facility]; Protocol Last Admin: 01/28/22 21:31 Dose: 750 mg Ondansetron HCl (Ondansetron 4 Mg/2 Ml Inj) 4 mg IV Q8H PRN PRN Reason: Nausea And Vomiting Oxycodone/Acetaminophen (Oxycodone /Acetaminophen 5-325mg Tab) 1 tab PO Q6H PRN PRN Reason: Pain, Moderate (4-6) Sertraline HCl (Sertraline 100 Mg Tab) 100 mg PO [facility] Last Admin: 01/28/22 21:31 Dose: 100 mg Sodium Chloride (Sodium Chloride 0.9% 10 Ml Flush Syringe) 10 ml IV BID [facility] Last Admin: 01/29/22 09:00 Dose: 10 ml Sodium Chloride (Sodium Chloride 0.9% 10 Ml Flush Syringe) 10 ml IV PRN PRN PRN Reason: LINE FLUSH Review of Systems All systems: negative (as per hpi;) Physical Examination - Vital Signs Vital Signs: Vital Signs Temp Pulse Resp BP Pulse Ox 99.3 F 99 H 18 182/86 99 01/27/22 15:36 01/27/22 15:36 01/27/22 15:36 01/27/22 15:36 01/27/22 15:36 - Physical Exam Narrative exam: Gen: nad, well-nourished; Head: normocephalic; Eyes: no gaze deviation; no ptosis; ENT: normal vocalization; CVS: warm and well-perfused; Pulm: no respiratory distress; GI: appears non-distended; Ext: no cyanosis appreciated at distal extremities; Skin: no acute rash at distal extremities; Heme: no pathologic ecchymosis appreciated at distal extremities; Neuro: alert, oriented to name, age, month, year, surroundings, no dysarthria, no aphasia, CN 2 - PERRL, visual lipscomb grossly intact, CN 3, 4, 6 - EOMI, CN 5 - facial sensation symmetric to light touch, CN 7 - facial movement decreased on the left, CN 8 - hearing grossly intact, CN 9, 10 - spontaneous swallow noted, CN 11 decreased left shoulder movement, CN 12 - tongue midline; Motor - at least 4/5 at right exts; 1/5 at proximal left arm; 0/5 at distal left arm; proximal left leg 3/5; distal left leg 0/5; Sensory - light touch decreased at left arm/leg, Cerebellar - fnf /hts intact on right only, Gait - deferred secondary to high fall risk; Results - Laboratory Findings CBC and BMP: 01/29/22 08:30 01/29/22 08:30 Abnormal Lab Findings: Abnormal Labs 01/27/22 01/27/22 01/27/22 16:51 16:51 16:51 WBC 17.5 H MCH 26 L RDW 16.7 H Lymph % (Auto) 10.2 L [place] % (Auto) [place] # (Auto) 0.9 H Seg Neutrophils % 84.4 H Seg Neuts % (Manual) Lymphocytes % (Manual) Monocytes % (Manual) Seg Neutrophils # 14.7 H Seg Neutrophils # Man Monocytes # (Manual) PT INR Carbon Dioxide 20 L Glucose 134 H Calcium 10.4 H Total Creatine Kinase 380 H Urine WBC (Auto) Salicylates < 0.3 L Acetaminophen 01/27/22 01/27/22 01/27/22 16:51 16:51 Unknown WBC MCH RDW Lymph % (Auto) [place] % (Auto) [place] # (Auto) Seg Neutrophils % Seg Neuts % (Manual) Lymphocytes % (Manual) Monocytes % (Manual) Seg Neutrophils # Seg Neutrophils # Man Monocytes # (Manual) PT 16.5 H INR 1.19 H Carbon Dioxide Glucose Calcium Total Creatine Kinase Urine WBC (Auto) 143.0 H Salicylates Acetaminophen 5.0 L 01/28/22 01/29/22 07:35 08:30 WBC 13.1 H MCH 25 L 26 L RDW 16.5 H 16.4 H Lymph % (Auto) [place] % (Auto) 7.9 H [place] # (Auto) Seg Neutrophils % Seg Neuts % (Manual) 71.0 H Lymphocytes % (Manual) 11.0 L Monocytes % (Manual) 11.0 H Seg Neutrophils # Seg Neutrophils # Man 9.3 H Monocytes # (Manual) 1.4 H PT INR Carbon Dioxide Glucose Calcium Total Creatine Kinase Urine WBC (Auto) Salicylates Acetaminophen Assessment and Plan 66 yo female with htn, heart failure, stroke (residual left hemiparesis), hypothyrodism, p/w a seizure in the setting of underlying infection (uti; sepsis). She notes no history of seizures. 1. Seizure - concern for high risk of recurrence based on review of ct head wo contrast and risk of recurrent infection; initiated Keppra 500 mg po bid; eeg results pending; aggressive treatment of underlying infection / inflammation / electrolyte (maintain eunatremia / eumagnesemia) / metabolic abnomralities; seizure precautions and restrictions (including no driving) until restrictions are cleared by a neurologist. Followup with Neurology in 4 weeks. 2. UTI - aggressive treatment per primary team. 3. Hypertension - aim for normotension. 4. Hypothyroidism - normal tsh; management per primary team. 5. No further acute neurologic intervention indicated at present. Seizure precautions / restrictions. Neurology will signoff. Edi Fregoso MD Neurology [id number]
--- NOTE | 2022-01-29 15:00 | Discharge Summary ---
Providers - Providers Date of Admission: 01/27/22 18:28 Date of discharge: 01/30/22 Attending physician: HONEY HARRISON MD 01/28/22 11:36 Consult to Physician [CONS] Routine Comment: Consulting Provider: ISAURO RIDER Physician Instructions: Reason For Exam: seizure Primary care physician: ANDRES LUEVANO Hospitalization Reason for admission: Sepsis, community-acquired pneumonia 2/2 GNR/atypical infxn Condition: Good Pertinent studies: Reviewed. Procedures: None. 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 Patient has diminished cognition and provides minimal history. Patient reports "I feel right now". Additional history provided by EMS staff, ED staff, as well as [facility] facility staff. As per staff the patient was found to have a fever to 101.3 F and was found to have a witnessed seizure. EMS was notified and upon arrival the patient was found to be in distress and subsequent transported to [facility] for further care and evaluation of the aforementioned symptoms. The patient was seen and evaluated in the emergency department. All lab and imaging studies reviewed. Chest x-ray revealed pneumonia, urinalysis also revealed urinary tract infection complicated by sepsis, metabolic acidosis, accelerated hypertension and new onset seizure. Patient admitted to medical floor due to increased risk of worsening symptoms and initiated on pneumonia protocol. Patient was initiated on p.o. Levaquin 750 mg daily. Patient denied symptoms associated with acute cystitis. Neurology was consulted for further management. Patient was initially loaded with Keppra in the ED, but she has not received any on the floor without any seizure activity. Patient will complete her antibiotic course upon discharge. The patient is medically cleared for discharge. Disposition: 01 HOME / SELF CARE / HOMELESS Final Discharge Diagnosis (Prints w/discharge instructions): Sepsis, community- acquired pneumonia secondary to possible gram-negative jair/atypical infection (present on admission), myoclonic syncope, metabolic acidosis, hypertension, vascular dementia, cerebral atherosclerosis, history of acute CVA Time spent for discharge: 45 min Core Measure Documentation - Palliative Care Palliative Care/ Comfort Measures: Not Applicable - Core Measures Any of the following diagnoses?: history only Exam - Constitutional Vitals: Temp Pulse Resp BP Pulse Ox 98.0 F 64 18 151/77 95 01/29/22 11:01 01/29/22 11:01 01/29/22 11:01 01/29/22 11:01 01/29/22 11:01 General appearance: Present: no acute distress, well-nourished - EENT Eyes: Present: PERRL, EOM intact ENT: hearing intact, clear oral mucosa, dentition normal - Neck Neck: Present: supple, normal ROM - Respiratory Respiratory effort: normal Respiratory: bilateral: CTA - Cardiovascular Rhythm: regular Heart Sounds: Present: S1 & S2 - Extremities Extremities: no ischemia, pulses intact, pulses symmetrical, No edema, normal temperature, normal color Peripheral Pulses: within normal limits - Abdominal General gastrointestinal: Present: soft, non-tender, non-distended, normal bowel sounds Female genitourinary: Present: deferred - Rectal Rectal Exam: deferred - Integumentary Integumentary: Present: clear, warm, dry - Musculoskeletal Musculoskeletal: left sided weakness (Left upper extremity weakness secondary to prior acute ischemic CVA) - Psychiatric Psychiatric: appropriate mood/affect, intact judgment & insight, memory intact, cooperative - Neurologic Neurologic: CNII-XII intact - Allied Health Allied health notes reviewed: nursing Plan Activity: advance as tolerated, no driving until cleared by PCP (Until cleared by Neurology) Diet: low salt Additional Instructions: The patient is an 86 YO 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 Patient has diminished cognition and provides minimal history. Patient reports "I feel right now". Additional history provided by EMS staff, ED staff, as well as [facility] staff. As per staff the patient was found to have a fever to 101.3 F and was found to have a witnessed seizure. EMS was notified and upon arrival the patient was found to be in distress and subsequent transported to [facility] for further care and evaluation of the aforementioned symptoms. The patient was seen and evaluated in the emergency department. All lab and imaging studies reviewed. Chest x-ray revealed pneumonia, urinalysis also revealed urinary tract infection complicated by sepsis, metabolic acidosis, accelerated hypertension and new onset seizure. Patient admitted to medical floor due to increased risk of worsening symptoms and initiated on pneumonia protocol. Patient was initiated on p.o. Levaquin 750 mg daily. Patient denied symptoms associated with acute cystitis. Neurology was consulted for further management. Patient was initially loaded with Keppra in the ED, but she has not received any on the floor without any seizure activity. Patient will complete her antibiotic course upon discharge. The patient is medically cleared for discharge. The patient cannot drive until cleared by outpatient Neurology. Care Plan Goals: Patient is medically clear for discharge. 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 Patient has diminished cognition and provides minimal history. Patient reports "I feel right now". Additional history provided by EMS staff, ED staff, as well as [facility] staff. As per staff the patient was found to have a fever to 101.3 F and was found to have a witnessed seizure. EMS was notified and upon arrival the patient was found to be in distress and subsequent transported to [facility] for further care and evaluation of the aforementioned symptoms. The patient was seen and evaluated in the emergency department. All lab and imaging studies reviewed. Chest x-ray revealed pneumonia, urinalysis also revealed urinary tract infection complicated by sepsis, metabolic acidosis, accelerated hypertension and new onset seizure. Patient admitted to medical floor due to increased risk of worsening symptoms and initiated on pneumonia protocol. Patient was initiated on p.o. Levaquin 750 mg daily. Patient denied symptoms associated with acute cystitis. Neurology was consulted for further management. Patient was initially loaded with Keppra in the ED, but she has not received any on the floor without any seizure activity. Patient will complete her antibiotic course upon discharge. The patient is medically cleared for discharge. Follow up with: ANDRES LUEVANO [Primary Care Provider] - 3-5 Days GAURI TONEY MD [Staff Physician] - 6 Weeks Prescriptions: AtorvaSTATin [Lipitor] 40 mg PO QHS #30 tablet Isosorbide Dinit/Hydralazine [Bidil 20 mg-37.5 mg Tablet] 20 - 37.5 mg PO Q8H #90 tab carvediloL [Coreg] 12.5 mg PO BID #60 tab levoFLOXacin [Levaquin TAB] 750 mg PO Q24H #2 tablet Losartan Potassium 25 mg PO QDAY #30 tab
[2022-01-29] MEDS: levoFLOXacin 750 MG TAB PO SCH (20:40)
[2022-01-29] MEDS: SERTRALINE 100 MG TAB PO SCH (21:43)
[2022-01-29] MEDS: levETIRAcetam 500 MG TAB PO SCH (22:02)
[2022-01-30 06:07] VITALS: BP 150/70
[2022-01-30] MEDS: ASPIRIN 81 MG TAB CHEW PO SCH (09:11)
[2022-01-30] MEDS: carvediloL 12.5 MG TAB PO SCH (09:11)
[2022-01-30] MEDS: levETIRAcetam 500 MG TAB PO SCH (09:11)
[2022-01-30 10:11] LABS: Basophils % (Auto) 0.4 % (0.0-1.8); Eosinophils # (Auto) 0.3 K/mm3 (0.0-0.4); Eosinophils % (Auto) 3.6 % (0.0-4.3); Hematocrit 33.8 % (30.3-42.9); Hemoglobin 10.9 gm/dl (10.1-14.3); Lymphocytes # (Auto) 2.3 K/mm3 (1.2-5.4); Lymphocytes % (Auto) 29.3 % (13.4-35.0); Mean Corpuscular HGB Conc 32 % (30-34); Mean Corpuscular Volume 81 fl (79-97); Monocytes # (Auto) 0.4 K/mm3 (0.0-0.8); Monocytes % (Auto) 5.6 % (0.0-7.3); Platelet Count 269 K/mm3 (140-440); Red Blood Count 4.18 M/mm3 (3.65-5.03); Red Cell Distribution Width 16.1 % (13.2-15.2)
[2022-01-30 10:26] LABS: BUN/Creatinine Ratio 16; Blood Urea Nitrogen 16 mg/dL (7-17); Calcium 9.5 mg/dL (8.4-10.2); Hemolysis Index 0
== END 2022-01-30 11:44 | DRG 871 ==
LOC: ED 15:04 → 3A 18:28
PROVIDERS: ADMIT Internal Medicine; ATTEND Student in an Organized Health Care Education/Training Program
DX: A41.9 Sepsis, unspecified organism (principal); J15.6 Pneumonia due to other Gram-negative bacteria; I69.354 Hemiplegia and hemiparesis following cerebral infarction affecting left non-dominant side; I13.0 Hypertensive heart and chronic kidney disease with heart failure and stage 1 through stage 4 chronic kidney disease, or unspecified chronic kidney disease; N39.0 Urinary tract infection, site not specified; Z20.822 Contact with and (suspected) exposure to COVID-19; I67.2 Cerebral atherosclerosis; F01.50 Vascular dementia, unspecified severity, without behavioral disturbance, psychotic disturbance, mood disturbance, and anxiety; R56.9 Unspecified convulsions; E03.9 Hypothyroidism, unspecified; I50.9 Heart failure, unspecified; N18.30 Chronic kidney disease, stage 3 unspecified; G93.89 Other specified disorders of brain; F32.9 Major depressive disorder, single episode, unspecified; Z88.8 Allergy status to other drugs, medicaments and biological substances; Z82.49 Family history of ischemic heart disease and other diseases of the circulatory system; Z83.3 Family history of diabetes mellitus; Z91.040 Latex allergy status; Z88.0 Allergy status to penicillin; Z91.013 Allergy to seafood
CPT/HCPCS: 36415; 70450; 71045; 80048; 80053; 80320; 81001; 82140; 82550; 83735; 84439; 84443; 85007; 85025; 85610; 85730; 87040; 93005; G0378; J3490; G0480; J0360; J0696; J1953; J2250; J7050; U0003